=== PATIENT | male | born 1995 | race Caucasian/White ===

== ENCOUNTER 2016-05-20 23:07 | Emergency (ER) | payer OTHER ==
[~2016-05-20] VITALS: Ht 188 cm; Wt 108.9 kg
--- OUTSIDE RECORDS SUMMARY | 2016-05-20 23:14 | XMS REPORT ---
Author Author WALESKA TORRES Organization [employer] Address Unknown Phone Unavailable Care Team Providers Care Chemical Etch Operator Name Role Phone WALESKA TORRES CP Unavailable Allergies, Adverse Reactions, Alerts Substance Reaction Event Type Benadryl Info Not Available Drug Allergy Problems Problem Type Condition Code Onset Dates Condition Status Assessment Acute non-recurrent sinusitis, unspecified location J01.90 Active Medications Medication Code System Code Instructions Start Date End Date Status Dosage Zithromax Z-[facility] [place] [id number] 250 MG Orally Once a day Jan 16, 2016 Jan 21, 2016 2 tablets on the first day, then 1 tablet daily for 4 days Procedures Procedure Coding System Code Date Office Visit, New Pt., Level 2 CPT-4 38857 Jan 16, 2016 Vital Signs Date/Time: Jan 16, 2016 Cardiac Monitoring Heart Rate 96 bpm Weight 235.5 lbs Height 75.0 in BMI 29.43 Index Blood Pressure Diastolic 81 mmHg Blood Pressure Systolic 154 mmHg Results No Known Results Summary Purpose [employer] Submission
[2016-05-20] MEDS ORDERED: NS IV 1000 ML 1,000 ML IV ONE (23:20)
--- NOTE | 2016-05-20 23:35 | ED General ---
General Chief Complaint: General Problems/Pain Stated Complaint: ANXIETY ATTACK,NYQUIL OVERDOSE Nursing Triage Note: Pt reports having fever and cough/cold symptoms earlier today. Pt took dose of NyQuil approx 30 min [employer]. Pt now reporting feeling like heart is racing and states "something isn't right if I go to sleep I feel like I won't wake up". Pt anxious upon arrival. Nursing Sepsis Screen: Possible Sepsis Risk Source of Information: Patient Exam Limitations: No Limitations History of Present Illness Time Seen by Provider: 23:15 Initial Comments Here with report of cough and cold symptoms today and took a dose of NyQuil approximately an hour ago and then 30 minutes later started feeling palpitations and heart racing. Very anxious on arrival. He take DayQuil earlier today and didn't have any problems. Problems only started after taking NyQuil. Does have fever. Does complain of upper respiratory symptoms. Denies nausea or vomiting. Timing/Duration: 1/2 Hour Severity: Moderate Modifying Factors: worse with Medication Associated Systoms: No Chest Pain, No Cough, Fever/ChillsNo Nausea/Vomiting, No Shortness of Air, No Weakness Allergies and Home Medications Allergies Coded Allergies: diphenhydramine (Verified Allergy, Unknown, 05/20/16) Home Medications No Active Prescriptions or Reported Meds Constitutional: see HPI chills fever EENTM: nose congestion see HPI Respiratory: see HPI coughNo wheezing Cardiovascular: see HPINo edema, palpitations Gastrointestinal: No nausea, No vomiting Genitourinary: no symptoms reported Musculoskeletal: no symptoms reported Skin: no symptoms reported Psychiatric/Neurological: See HPI AnxietyDenies Headache Hematologic/Lymphatic: No Symptoms Reported All Other Systems Reviewed Negative Unless Noted: Yes Past Yfkuxhn-Jjzqkg-Uymoyi Hx Patient Social History Alcohol Use: Denies Use Recreational Drug Use: No Smoking Status: Never a Smoker Recent Foreign Travel: No Contact w/Someone Who Travel: No Recent Infectious Disease Expo: No Recent Hopitalizations: No Physical Abuse Screen: No Sexual Abuse: No Seasonal Allergies Seasonal Allergies: No Surgeries HX Surgeries: No Respiratory Hx Respiratory Disorders: No Cardiovascular Hx Cardiac Disorders: Yes (ON ECCHMO ) Neurological Hx Neurological Disorders: No Reproductive System Hx Reproductive Disorders: No Genitourinary Hx Genitourinary Disorders: No Gastrointestinal Hx Gastrointestinal Disorders: No Musculoskeletal Hx Musculoskeletal Disorders: No Endocrine Hx Endocrine Disorders: No HEENT HX ENT Disorders: No Cancer Hx Cancer: No Psychosocial Hx Psychiatric Problems: No Integumentary HX Skin/Integumentary Disorder: No Blood Transfusions Hx Blood Disorders: No Reviewed Nursing Assessment Reviewed/Agree w Nursing PMH: Yes Family Medical History Significant Family History: No Pertinent Family Hx Physical Exam Vital Signs Vital Sign - Last 12Hours 05/20/16 23:22 Temp 100.7 Pulse 153 Resp 20 B/P 158/93 Pulse Ox 97 O2 Delivery Room Air Capillary Refill : Less Than 3 Seconds General Appearance: WD/WN Anxious HEENT: PERRL/EOMI Pharynx Normal Neck: Non Tender Supple Respiratory: Lungs Clear Normal Breath Sounds Cardiovascular: No Murmur Tachycardia Gastrointestinal: Non Tender Soft Back: Normal Inspection No CVA Tenderness No Vertebral Tenderness Extremity: Non Tender No Calf Tenderness Neurologic/Psychiatric: Alert Oriented x3 Skin: Normal Color Warm/Dry Progress/Results/Core Measures Results/Orders Lab Results Laboratory Tests Test 05/20/16 23:29 Range/Units Alanine Aminotransferase (ALT/SGPT) 53 0-55 U/L Albumin 4.8 H 3.2-4.5 G/DL Alkaline Phosphatase 83 40-136 U/L Anion Gap 14 5-14 MMOL/L Aspartate Amino Transf (AST/SGOT) 27 5-34 U/L BUN/Creatinine Ratio 8 Basophils # (Auto) 0.0 0.0-0.1 10^3/uL Basophils (%) (Auto) 0 0-10 % Blood Urea Nitrogen 11 7-18 MG/DL Calcium Level 9.7 8.5-10.1 MG/DL Carbon Dioxide Level 20 L 21-32 MMOL/L Chloride Level 105 98-107 MMOL/L Creatinine 1.43 H 0.60-1.30 MG/DL Eosinophils # (Auto) 0.1 0.0-0.3 10^3/uL Eosinophils (%) (Auto) 1 0-10 % Estimat Glomerular Filtration Rate > 60 Glucose Level 109 H 70-105 MG/DL Hematocrit 46 40-54 % Hemoglobin 16.3 13.3-17.7 G/DL Lymphocytes # (Auto) 1.7 1.0-4.0 X 10^3 Lymphocytes (%) (Auto) 20 12-44 % Mean Corpuscular Hemoglobin 31 25-34 PG Mean Corpuscular Hemoglobin Concent 35 32-36 G/DL Mean Corpuscular Volume 87 80-99 FL Mean Platelet Volume 11.9 H 7.4-10.4 FL Monocytes # (Auto) 1.1 H 0.0-1.0 X 10^3 Monocytes (%) (Auto) 13 H 0-12 % Neutrophils # (Auto) 5.5 1.8-7.8 X 10^3 Neutrophils (%) (Auto) 65 42-75 % Platelet Count 218 130-400 10^3/uL Potassium Level 3.5 L 3.6-5.0 MMOL/L Red Blood Count 5.27 4.35-5.85 10^6/uL Red Cell Distribution Width 12.9 10.0-14.5 % Sodium Level 139 135-145 MMOL/L Total Bilirubin 0.5 0.1-1.0 MG/DL Total Protein 7.8 6.4-8.2 G/DL White Blood Count 8.5 4.3-11.0 10^3/uL Micro Results Microbiology 05/20/16 Influenza Types A,B Antigen (JANET) - Final, Complete My Orders Orders-PATTY BAY MD Saline Lock/Iv-Start (05/20/16 23:20) Ns Iv 1000 Ml (Sodium Chloride 0.9%) (05/20/16 23:20) Cbc With Automated Diff (05/20/16 23:20) Comprehensive Metabolic Panel (05/20/16 23:20) Influenza A And B Antigens (05/20/16 23:20) Ekg Tracing (05/20/16 23:20) Monitor-Rhythm Ecg Trace Only (05/20/16 23:20) Ns Iv 1000 Ml (Sodium Chloride 0.9%) (05/21/16 00:02) Alprazolam Tablet (Xanax Tablet) (05/21/16 01:15) Medications Given in ED Current Medications Medications Dose Ordered Sig/Travis Route Start Time Stop Time Status Last Admin Dose Admin Alprazolam 0.25 mg ONCE ONCE PO 05/21/16 01:15 05/21/16 01:16 DC 05/21/16 01:15 0.25 MG Sodium Chloride 1,000 ml @ 0 mls/hr Q0M ONCE IV 05/20/16 23:20 05/20/16 23:22 DC 05/20/16 23:35 999 MLS/HR Sodium Chloride 1,000 ml @ 0 mls/hr Q0M ONCE IV 05/21/16 00:02 05/21/16 00:03 DC 05/21/16 00:16 999 MLS/HR Vital Signs/I&O Vital Sign - Last 12Hours 05/20/16 23:22 Temp 100.7 Pulse 153 Resp 20 B/P 158/93 Pulse Ox 97 O2 Delivery Room Air Blood Pressure Mean: 114 Progress Note : Progress Note Seen and evaluated. IV, labs, EKG and normal saline 1 L bolus ordered. Monitor patient. Repeat normal saline 1 L bolus. Monitor patient. 0145: Patient was complaining of head fuzziness and fullness. CT ordered but later canceled as patient did not want to have CT of his head. This is reasonable. Overall patient is feeling better. Heart rate is still somewhat elevated in the low 110's but is markedly improved since onset at arrival. Patient did take NyQuil tonight and all symptoms started within 30 minutes after taking the medicine. Reportedly has Benadryl allergy. This does appear to be medication side effect given the temporal relationship to medication administration and onset of symptoms. He was taking the NyQuil for upper respiratory concerns including runny nose, mild sore throat and central chest congestion that he feels when he takes a deep breath. He states he feels it in his throat. He describes a fuzziness of thinking that is mild and grogginess since taking the NyQuil. Monitor patient ECG Initial ECG Impression Date: May 20, 2016 Initial ECG Impression Time: 23:21 Initial ECG Rate: 133 Initial ECG Rhythm: S.Tach Initial ECG Impression: Normal Comment Sinus tachycardia with left atrial abnormality. No evidence of ST elevation OR. Normal axis. Interpreted by me. No previous available for comparison. Departure Impression Impression: Primary Impression: Adverse effects of medication Qualified Code: T88.7XXA - Unspecified adverse effect of drug or medicament, initial encounter Additional Impression: Upper respiratory infection Qualified Code: J06.9 - Acute upper respiratory infection, unspecified Disposition: 01 HOME, SELF-CARE Condition: Improved Departure-Patient Inst. Decision time for Depature: 01:54 Referrals: NO,LOCAL PHYSICIAN (PCP) Primary Care Physician Patient Instructions: MEDICATION REACTION Add. Discharge Instructions: All discharge instructions reviewed with patient and/or family. Voiced understanding. Avoid taking NyQuil. It would appear that you are tolerant of DayQuil and that would be okay. Avoid medications with doxylamine or diphenhydramine. Follow up with your doctor in a few days for recheck. Return for worse pain, fever, vomiting, breathing problems or other concerns as needed. Scripts No Active Prescriptions or Reported Meds PATTY BAY MD May 20, 2016 23:34
[2016-05-20 23:37] LABS: BASOPHILS % (AUTO) 0 % (0-10); EOSINOPHILS # (AUTO) 0.1 10^3/uL (0.0-0.3); EOSINOPHILS % (AUTO) 1 % (0-10); LYMPHOCYTES # (AUTO) 1.7 X 10^3 (1.0-4.0); LYMPHOCYTES % (AUTO) 20 % (12-44); MEAN CORPUSCULAR HEMOGLOBIN 31 PG (25-34); MEAN CORPUSCULAR HGB CONC 35 G/DL (32-36); MEAN CORPUSCULAR VOLUME 87 FL (80-99); MEAN PLATELET VOLUME 11.9 FL (7.4-10.4); MONOCYTES # (AUTO) 1.1 X 10^3 (0.0-1.0); MONOCYTES % (AUTO) 13 % (0-12); NEUTROPHILS # (AUTO) 5.5 X 10^3 (1.8-7.8); NEUTROPHILS % (AUTO) 65 % (42-75); PLATELET COUNT 218 10^3/uL (130-400); RED BLOOD COUNT 5.27 10^6/uL (4.35-5.85); RED CELL DISTRIBUTION WIDTH 12.9 % (10.0-14.5); WHITE BLOOD COUNT 8.5 10^3/uL (4.3-11.0)
[2016-05-20 23:54] LABS: ALANINE AMINOTRANSFERASE 53 U/L (0-55); ALBUMIN 4.8 G/DL (3.2-4.5); ANION GAP 14 MMOL/L (5-14); ASPARTATE AMINO TRANSFERASE 27 U/L (5-34); BILIRUBIN,TOTAL 0.5 MG/DL (0.1-1.0); BLOOD UREA NITROGEN 11 MG/DL (7-18); BUN/CREATININE RATIO 8; CALCIUM 9.7 MG/DL (8.5-10.1); CARBON DIOXIDE 20 MMOL/L (21-32); CHLORIDE 105 MMOL/L (98-107); CREATININE SERUM 1.43 MG/DL (0.60-1.30); GFR ESTIMATED > 60; GLUCOSE 109 MG/DL (70-105); POTASSIUM 3.5 MMOL/L (3.6-5.0); SODIUM 139 MMOL/L (135-145); TOTAL PROTEIN 7.8 G/DL (6.4-8.2)
[2016-05-21] MEDS ORDERED: NS IV 1000 ML 1,000 ML IV ONE (00:02)
[2016-05-21] MEDS ORDERED: ALPRAZolam 0.25 MG (XANAX) TAB PO ONE (01:15)
[2016-05-21 02:12] VITALS: BP 110/62
== END 2016-05-21 02:12 | disposition home or self-care (01) ==
LOC: ER 23:10
DX: R00.0 Tachycardia, unspecified (principal); T44.995A Adverse effect of other drug primarily affecting the autonomic nervous system, initial encounter; J06.9 Acute upper respiratory infection, unspecified; R50.9 Fever, unspecified; F41.9 Anxiety disorder, unspecified
CPT/HCPCS: 36415; 80053; 85025; 87804; 93005; 93041; 96360